=== PATIENT | female | born 1955 | race Two or more races ===

== ENCOUNTER 2024-07-30 16:27 | Inpatient (IN) | payer OTHER ==
[~2024-07-30] VITALS: Ht 167.6 cm; Wt 68.0 kg
[2024-07-30] MEDS ORDERED: ATORVASTATIN CA10 MG PO (16:50)
[2024-07-30] MEDS ORDERED: HORIZANT300 MG (16:50)
[2024-07-30] MEDS ORDERED: PEPCID20 MG PO (16:51)
--- NOTE | 2024-07-30 16:51 | NUR ---
PTE ALERTA Y ORIENTADA X3 EN COMPANIA DE PARAMEDICOS Y FAMILIAR. PTE REFIERE DOLOR ABDOMINAL DESDE HACE 1 BOYER. SE OBSERVA ABDOMEN DISTENDIDO, SOLIDO AL TACTO. PTE REFIERE DOLOR AL TACTO. SE OBSERVA CATETER PARA DIALISIS EN PARTE INFERIOR IZQUIERDA DEL ABDOMEN. SE LUKAS SV Y SE UBICA
[2024-07-30] MEDS ORDERED: GENTAMICIN SULFATE 40 MG/ML VIAL IV ONE (17:30)
[2024-07-30] MEDS ORDERED: VANCOMYCIN HCL 1,000 MG VIAL IV ONE (17:30)
--- NOTE | 2024-07-30 18:25 | NUR ---
PTE ALERTA Y ORIENTADA X3. SE EDUCA A PTE SOBRE TRATAMIENTO MEDICO Y LIZA DE MUESTRAS ORDENADAS POR MD, SE ADMINISTRA TRATAMIENTO MEDICO BAJO MEDIDAS ASEPTICAS USMAN ORDEN MEDICA. SE REALIZA LIZA DE MUESTRAS BAJO MEDIDAS ESTERILES Y ASEPTICAS. SE NOTIFICA CT
[2024-07-30 18:44] LABS: HEMOGLOBIN 10.2 g/dL (12.0-15.00); MEAN CELL VOLUME 92.7 fL (80.00-100.00); MEAN CORPUSCULAR HEMOGLOBIN 31.4 pg (27.00-32.0); MEAN CORPUSCULAR HGB CONC 33.9 g/dl (32.0-36.0); RED BLOOD COUNT 3.24 M/uL (4.00-6.00); RED CELL DISTRIBUTION WIDTH 13.9 % (11.5-14.5)
[2024-07-30] MEDS ORDERED: KETOROLAC TROMETHAMINE 10 MG TABLET PO ONE (19:17)
[2024-07-30 19:26] LABS: PLATELET COUNT 89 K/uL (150-450)
[2024-07-30 19:31] LABS: ERYTHROCYTE SEDIMENTATION RATE 73 mm/hr
[2024-07-30 19:46] LABS: INR 1.1; PARTIAL THROMBOPLASTIN TIME 28.5 SECONDS (22.0-34.0); PROTHROMBIN TIME 11.9 SECONDS (9.0-11.5)
[2024-07-30 19:54] LABS: BILIRUBIN TOTAL 0.69 mg/dL (0.3-1.2); CALCIUM 8.7 mg/dL (8.5-10.1); POTASSIUM 3.88 mEq/L (3.5-5.1)
[2024-07-30 20:15] LABS: C-REACTIVE PROTEIN 19.7 MG/DL (0.00-0.29); CREATININE SERUM 10.6 mg/dL (0.55-1.02); GFR 3.61
[2024-07-30] MEDS ORDERED: LIDOCAINE HCL VISCOUS 20MG/ML BLIST 15ML MM ONE (21:57)
[2024-07-30] MEDS ORDERED: 0.9 % SODIUM CHLORIDE 1,000 ML IV SCH (22:15)
[2024-07-30] MEDS ORDERED: DIATRIZOATE MEGLUMINE, SODIUM 30 ML BOTTLE ONE (22:26)
[2024-07-30] MEDS ORDERED: PANTOPRAZOLE SODIUM 40 MG/VIAL VIAL IV ONE (22:30)
[2024-07-30] MEDS ORDERED: PANTOPRAZOLE SODIUM 80 MG in 0.9 % SODIUM CHLORIDE 100 ML IV SCH (22:30)
[2024-07-30] MEDS ORDERED: ONDANSETRON HCL 4 MG in 0.9 % SODIUM CHLORIDE 50 ML IV PRN (22:30)
--- NOTE | 2024-07-30 22:33 | NUR ---
PTE ALERTA Y ORIENTADA X3. SE EDUCA A PTE SOBRE INSERCION Y EL PROPOSITO DE NGT PTE REFIERE ENTENDER SE INSERTA NGT EN FOSA NASAL DERECHA Y SE FIJA. SE CONFIRMA POSICION DEL MISMO Y SE ASCULTA ABDOMEN EL MISMO SE ENCUENTRA PATENTE. NO SE OBSERVA RESIDUAL.
[2024-07-30] MEDS ORDERED: MEPERIDINE HCL/PF 25 MG/ML VIAL IM PRN (22:45)
[2024-07-31] VITALS (9 sets, daily range): BP systolic 92–116; BP diastolic 54–69; O2SAT 94–100
[2024-07-31] MEDS ORDERED: PIPERACILLIN/TAZOBACTAM SODIUM 2.25 GM in DEXTROSE 5 % IN WATER 50 ML IV SCH (05:00)
[2024-07-31] MEDS ORDERED: CHLORHEXIDINE GLUCONATE 120 ML BOTTLE TOP ONE (08:43)
[2024-07-31 10:01] LABS: CALCIUM 7.8 mg/dL (8.5-10.1); CHOL HDL RATIO 2.7 (0-5.0); GFR 3.45; POTASSIUM 4.24 mEq/L (3.5-5.1)
[2024-07-31 10:15] LABS: PH,URINE 7.5 (5.0-8.0); URINE APPEARANCE Clear; URINE BILIRRUBIN Negative (NEGATIVE); URINE BLOOD Negative; URINE COLOR Yellow; URINE GLUCOSE Negative (NEGATIVE); URINE KETONE Negative (NEGATIVE); URINE LEUKOCYTE Negative; URINE NITRATE Negative; URINE UROBILINOGEN 0.2 E.U./dl
[2024-07-31 10:19] LABS: URINE BACTERIA 12.2 uL (0.0-1933); URINE RBC 4.4 uL (0.0-20.8); URINE WBC 4.5 uL (0.0-23.2)
[2024-07-31 10:28] LABS: URINE CAST 0.14 uL (0.0-1.40); URINE PROTEIN 100 (NEGATIVE)
[2024-07-31] MEDS ORDERED: AMINO ACIDS 4.25%/DEXTROSE 10% 1,000 ML CENTRAL SCH (17:00)
[2024-07-31] MEDS ORDERED: AA 4.25%/CAL/LYTES/DEXT 5% 1,000 ML PERIFERAL SCH (17:00)
[2024-07-31] MEDS ORDERED: SODIUM CL 0.9% 100 ML IV.SOLN IV ONE (22:35)
[2024-08-01] MEDS ORDERED: PHENOL 177 ML BOTTLE MM PRN (00:15)
[2024-08-01 04:00] VITALS: BP 112/72; O2SAT 98
[2024-08-01 07:08] VITALS: BP 111/76; O2SAT 97
[2024-08-01 07:22] LABS: CALCIUM 7.4 mg/dL (8.5-10.1); GFR 3.38; POTASSIUM 4.34 mEq/L (3.5-5.1)
[2024-08-01 07:26] LABS: CREATININE SERUM 11.2 mg/dL (0.55-1.02)
[2024-08-01 07:43] LABS: HEMATOCRIT 24.5 % (36.0-45.00); MEAN CORPUSCULAR HGB CONC 35.3 g/dl (32.0-36.0); RED BLOOD COUNT 2.72 M/uL (4.00-6.00); RED CELL DISTRIBUTION WIDTH 13.4 % (11.5-14.5)
[2024-08-01 07:56] LABS: HEMOGLOBIN 8.6 g/dL (12.0-15.00); MEAN CORPUSCULAR HEMOGLOBIN 31.6 pg (27.00-32.0); PLATELET COUNT 79 K/uL (150-450)
[2024-08-01] MEDS ORDERED: EPOETIN ALFA-EPBX 10,000 UNIT/ML VIAL (Retacrit) SUBCUTANEO NR (09:00)
[2024-08-01 13:41] VITALS: BP 121/68; O2SAT 100
[2024-08-01] MEDS ORDERED: METOCLOPRAMIDE HCL 5 MG/ML VIAL IV SCH (15:12)
[2024-08-01 15:23] VITALS: BP 120/64; O2SAT 100
[2024-08-01] MEDS ORDERED: AMINO ACIDS 4.25%/DEXTROSE 10% 1,000 ML CENTRAL SCH (17:00)
[2024-08-01] MEDS ORDERED: CEFEPIME HCL 1,000 MG VIAL IV SCH (17:00)
[2024-08-01] MEDS ORDERED: VANCOMYCIN HCL 500 MG VIAL IV SCH ×2 (17:00→22:30)
[2024-08-01 20:00] VITALS: BP 114/66; O2SAT 100
[2024-08-01 23:17] VITALS: BP 122/66; O2SAT 98
[2024-08-02 04:11] VITALS: BP 106/63; O2SAT 97
[2024-08-02 07:25] VITALS: BP 121/67; O2SAT 97
[2024-08-02 12:00] VITALS: BP 122/65; O2SAT 98
[2024-08-02 17:14] VITALS: BP 142/82; O2SAT 98
[2024-08-03 02:50] VITALS: BP 108/51; O2SAT 97
[2024-08-03 08:37] VITALS: BP 95/51
[2024-08-04] MEDS ORDERED: VANCOMYCIN HCL 500 MG VIAL IV SCH (09:00)
== END 2024-08-03 11:50 | disposition home or self-care (01) | DRG 371 ==
LOC: ER 16:27 → ICU 23:26 → MEDI 08-02 14:23
PROVIDERS: General Practice; Internal Medicine; ADMIT Internal Medicine; ATTEND Internal Medicine
PROC: BW21ZZZ Computerized Tomography (CT Scan) of Abdomen and Pelvis (ICD-10-PCS; principal; 2024-07-30)
PROC: BW21YZZ Computerized Tomography (CT Scan) of Abdomen and Pelvis using Other Contrast (ICD-10-PCS; 2024-07-30)
DX: K65.9 Peritonitis, unspecified (principal); K63.1 Perforation of intestine (nontraumatic); N18.6 End stage renal disease; J98.11 Atelectasis; Z99.2 Dependence on renal dialysis; D69.6 Thrombocytopenia, unspecified; K74.60 Unspecified cirrhosis of liver